=== PATIENT | female | born 1950 | race Caucasian/White ===

== ENCOUNTER 2016-12-31 07:01 | Day surgery (SDC) | payer MEDICARE, OTHER ==
[2016-12-31] VITALS (9 sets, daily range): BP systolic 120–154; BP diastolic 65–82; PULSE 58–79; RESP 11–18; O2SAT 95–99
[~2016-12-31] VITALS: Ht 161.3 cm; Wt 84.0 kg
[~2016-12-31 07:01] MED LIST: IBUP200C PO; LAMO150T2 PO; LIP40 PO; Lactated Ringer's 1,000 ML IV SCH; OMEP20CA11 PO
[2016-12-31] MEDS ORDERED: Lidocaine PF 1% 30 mL Inj ONE (07:02)
[2016-12-31] MEDS ORDERED: Propofol 10,000 mCg/mL 20 mL Inj ONE (07:02)
[2016-12-31] MEDS ORDERED: fentaNYL-PF 50 mCg/mL 2 mL Inj ONE (07:02)
[2016-12-31] MEDS ORDERED: Dexamethasone 4 mg/mL Inj ONE (07:02)
[2016-12-31] MEDS ORDERED: Ondansetron 2 mg/mL 2 mL Inj ONE (07:02)
[2016-12-31] MEDS ORDERED: CeFAZolin Inj 2 GM in IV Premix 1 EACH IV ONE (08:00)
[2016-12-31] MEDS ORDERED: Lactated Ringer's 1,000 ML IV SCH ×2 (08:00→09:55)
[2016-12-31] MEDS ORDERED: Lactated Ringer's 1,000 ML IV ONE (08:19)
[2016-12-31] MEDS ORDERED: EPHEDrine Sulfate 50 mg/mL Inj IVPUSH PRN (09:55)
[2016-12-31] MEDS ORDERED: HYDROmorphone 1 mg/mL Inj IVPUSH PRN (09:55)
[2016-12-31] MEDS ORDERED: fentaNYL-PF 50 mCg/mL 2 mL Inj IVPUSH PRN (09:55)
[2016-12-31] MEDS ORDERED: Phenylephrine 10,000 mCg/mL Inj IVPUSH PRN (09:55)
[2016-12-31] MEDS ORDERED: Lactated Ringer's 500 ML IV PRN (09:55)
[2016-12-31] MEDS ORDERED: Dexamethasone 4 mg/mL Inj IVPUSH PRN (09:55)
[2016-12-31] MEDS ORDERED: Ondansetron 2 mg/mL 2 mL Inj IVPUSH PRN (09:55)
[2016-12-31] MEDS ORDERED: MetoCLOpramide 5 mg/mL 2 mL Inj IVPUSH PRN (09:55)
[2016-12-31] MEDS ORDERED: Albuterol-Ipratropium 3 mL Inhalation Solution NEB PRN (09:55)
--- NOTE | 2016-12-31 09:55 | PCM.HPANE ---
Patient Data Date of Service: Dec 31, 2016 (0954) Surgeon Admitting Provider: Attending Provider:Jeffrey Han MD Primary Care Physician:Nolan Horton MD Other Provider:Marek Francis Anesthesia Reason for Visit Left Knee Meniscal Tear Ht/WT & BMI Height (Feet): 5 Height (Inches): 3.50 Weight (Kilograms): 84.000 Body Mass Index 32.00 Allergies Coded Allergies: No Known Allergies (Unverified , 12/26/16) Past Anesthesia History Anesthesia History: Positive for:: Anesthesia Reactions (PONV), Denies:: Malignant Hyperthermia Diabetes History Hx Diabetes?: No MRSA MRSA: No Medications Home Meds Incl Beta Blanca: No Reported Medications Omeprazole 20 Mg Capsule.dr20 Mg PO DAILY Ref 0 12/26/16 Atorvastatin (Lipitor)40 Mg [id number] Mg PO DAILY Ref 0 12/26/16 Lamotrigine 150 Mg Jpiygh360 Mg PO DAILY Ref 0 12/26/16 Ibuprofen 200 Mg [id number] Mg PO QID PRN For Pain Ref 0 12/26/16 History History of ENT Problems?: No HEENT History: Denies:: Abnormal Airway Denture Type: None Teeth Condition: Within Normal Limits Hx of Heart Problems?: Yes Cardiovascular History: Denies:: Heart Murmur Hypertension (hyperlipidemia) Hx of Respiratory Problem?: No Respiratory History: Denies:: Use of C-PAP Machine Hx Neurologic Problems?: Yes Neurological History: Positive for:: Headaches Hx of GI Problems?: Yes Hx of Problems?: Yes Genitourinary History: Positive for:: Kidney Stones (HX OF) Female Hx: Denies:: Currently Skin History: Denies:: History Skin Disorders? Pressure Ulcers Hx Musculoskeletal Problems?: Yes Musculoskeletal History: Positive for:: Musculoskeletal Trauma (LT KNEE MENISCAL TEAR=CURRENT PROBLEM HX CL FX LT ANKLE) Osteoarthritis Hx of Psycho/Social Problems?: No Hx Surgeries?: Yes (RT CTR,EXC PILONIDAL CYST,QUINCY) Hx Any Other Health Problems?: Yes Other History: Denies:: Cancer Endocrine Disease Hospitalization Thyroid Disease Hx Diabetes: No Hx Alcohol Use: YesAlcoholic Drinks Per Day: 3-5/WEEKHx Substance Use: No Have You Smoked inLast 12 mo: No Stop/Bang S-Snoring: Do You Snore Loudly: No T-Tired: feel tired, fatigued: No O-Obsered: Observed not breath: No P-Blood Pressure: treated: No B- Body Mass Index > 35 kg/m2: No A- Age over 50: Yes N- Neck Large Circumference: No G- Gender Male: No MATTHEW Total Score: 1 MATTHEW Risk Assessment: Low Risk, <3 Yes Risk Assessment Category Category 1A: Patient has history of documented sleep apnea, and HAS NOT received any narcotic, sedative or anesthesia administration during this stay. Category 1B: Patient has history of documented sleep apnea, and HAS received any narcotic , sedative or anesthesia administration during this stay Category 2: Patient has SUSPECTED Obstructive Sleep Apnea, and HAS received any narcotic , sedative or anesthesia administration during this stay. Category 3: Patient has SUSPECTED Obstructive Sleep Apnea and HAS NOT received narcotic, sedative or anesthesia administration during this stay. Category 4: Outpatient in Procedural Areas with known sleep apnea or who screen positive for High Risk via the STOP/BANG questionnaire. Exam Exam Vital Signs Vital Signs Date Time Temp Pulse Resp B/P Pulse Ox O2 Delivery O2 Flow Rate FiO2 12/31/16 07:49 36.1 79 17 154/69 98 Room Air General Appearance: Alert, Oriented X3 HEENT/AIRWAY: MP 1 Lungs: Clear to Auscultation Heart: Exam Unremarkable Meds/Labs/Diagnostics Admission Meds Current Medications Lactated Ringer's (Lr) 1,000 ml @ ud STK-MED ONCE IV Last administered on 12/31t 08:19; Start 12/31/16 at 08:19; Stop 12/31/16 at 08:20; Status DC Plan Impression Patient chart reviewed, patient interviewed and anesthestic plan with risks, benefits, and alternatives discussed, and informed consent obtained. NPO per Anesth. Guidelines: Yes ASA Physical Status: ASA2 Mod Systemic Disease Anesthetic Plan: GA Bene/Risks/Altern/Consents: Yes HP Complete Prior to Induction: Yes Arley Johnson MD Dec 31, 2016 09:55
[2016-12-31] MEDS ORDERED: oxyCODONE-Acetamin 5-325 mg Tablet PO PRN (10:05)
[2016-12-31] MEDS ORDERED: Ketorolac 15 mg/mL Inj IVPUSH ONE (10:05)
--- NOTE | 2016-12-31 10:06 | PCM.ORTHOP ---
Orthopedic Operative Report Date of Service: Dec 31, 2016 (0954) Pre Operative Diagnosis Left knee medial meniscus tear, arthritis Post Operative Diagnosis Same Procedure Left knee arthroscopy, partial medial meniscectomy, partial lateral meniscectomy , chondroplasty, partial synovectomy Surgeon Surgeon: Jeffrey Han MD Assistants: Erika Figueroa Indication for Procedure Left knee meniscus tear Findings Per dictation Details of Procedure Evangelina Rodriguez is a 66-year-old female who has had a history of left knee pain. The patient has failed conservative management. X-rays show the tibiofemoral joints with moderate DJD. 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 The patient has had persistent symptoms and is now brought to the operating room for arthroscopy. The risks, benefits, and alternatives of surgery were discussed with the patient. The risks included but were not limited to infection, bleeding, damage to vessels and nerves, loss of motion, continued pain, re-tear of the meniscus, deep venous thrombosis, and complications due to anesthesia including nerve injury, myocardial infarction, stroke, , etc. The patient stated understanding of the nature of the surgical procedure and gave written and verbal consent to proceed. PROCEDURE: The patient was brought to the operating room and placed supine on the operating room table. After the administration of general anesthesia the patient was placed in the supine position. Examination of the knee revealed no evident instability with a trace effusion. All prominences were padded with appropriately and neurovascular structures protected. The left knee was confirmed to be the appropriate site following surgical time out. The left lower extremity was examined under anesthesia. Range of motion was 0-135 degrees. There was no varus or valgus or anterior or posterior instability. The left lower extremity was then prepped and draped in the usual fashion. Sterile prep and drape was then undertaken of the knee. The knee joint was injected with 20 ccs of 1% Lidocaine, along with 3 ccs of 1 % lidocaine in the medial and lateral portal sites respectively. A standard anterolateral parapatellar stab wound was created. The knee joint was entered with a blunt- tipped obturator, followed by the 30-degree video arthroscope. An anteromedial portal was established under arthroscopic control. A routine arthroscopic survey was performed. The patellofemoral joint showed grade 2/3 chondromalacia which was debrided down to stable tissue with a shaver. The medial joint space was then entered. The articular surfaces showed grade 3/ 4chondromalacia. A degenerative radial medial meniscal tear was noted with a small flap. The shaver and the cutting instruments were inserted, and a debridement of the meniscus back to healthy tissue was then undertaken. The ACL and PCL were noted to be intact. The lateral joint space was then entered. The articular surfaces were intact with grade 1/2 chondromalacia. There was a degenerative tear to the inner aspect of the lateral meniscus with a small flap. A combination of the shaver and cutting instruments were then inserted and a debridement of this tissue down to stable tissue was undertaken. Moderate synovitis was noted anteriorly in the medial and lateral compartment and debrided with a shaver. The knee was irrigated with an additional 2 liters of lactated Ringer's solution. Excess fluid was drained. The portals were closed with 3-0 nylon as well as xeroform. The knee was injected with 20 mL of 0.5% ropivacaine. A dry sterile dressing was applied, followed by an YAZAN hose, soft roll, and SAGRARIO bandage. The patient was awakened in the operating room and transported to the recovery room in satisfactory condition. The patient appeared to tolerate the procedure well. At the completion of surgery the patient had soft compartments , palpable pulses, and brisk capillary refill. There were no complications noted. Please keep dressing clean dry and intact. Do not remove dressing until follow- up in clinic. If the dressing become soaked, you may remove the outer gauze and placed Band-Aids on the wounds. You may weight-bear as tolerated and maintain motion of your knee by bending it daily. You will follow up in clinic in 10-14 days for suture removal, and placement of new Steri-Strips. You will follow-up with me in clinic, and we will start physical therapy if needed. You will follow-up with me at 6 weeks postop and 12 weeks postop and will be released after that if improved. Please keep the affected extremity elevated when possible. Please take aspirin as prescribed. You may use ice and/ or heat as needed for comfort. (preferably ice during the first 48-72 hours) Please feel free to call with any further questions, comments, and/or concerns. Grafts, Implants: None Complications There were no periprocedural complications identified. Condition Stable Anesthetic Administered: GA Catheters: None Output, Estimated Blood Loss: 5 Blood Admin during surgery: No Surgical Cast or Splint: Other Surgical Specimen Removed: No Specimen sent to Pathology: No copies to: Jeffrey Han MD, Christopher L MD Dec 31, 2016 10:05 Surgical Specimen Removed: No Specimen sent to Pathology: No copies to: Jeffrey Han MD, Christopher L MD Dec 31, 2016 10:05
[2016-12-31] MEDS ORDERED: Ropivacaine-PF 0.5% 30 mL Inj INFILTRATE ONE (10:26)
--- NOTE | 2016-12-31 10:48 | PCM.ANEP1 ---
Post Anesthesia PACU Phase 1 Assessment Vital Signs 36.1, 75, 14, 98%, 139/82 Vital Signs Date Time Temp Pulse Resp B/P Pulse Ox O2 Delivery O2 Flow Rate FiO2 12/31/16 07:49 36.1 79 17 154/69 98 Room Air Anesthetic Administered: GA Level of Alertness: Awake, talking PENNINGTON's with Equal Strength: Yes Pain: No Nausea or Vomiting: No CV Function & Hydration Stable: Yes Airway Device: NONE Oxygen Delivery: Simple Mask Lungs: Clear to Auscultation Dermatome Level: Full Sensation Summary UNEVENTFUL GA PACU Phase 2 Assessment Complications: No Follow up Care: No Patient Instructions Provided: N/A Arley Johnson MD Dec 31, 2016 10:48
== END 2016-12-31 23:59 | disposition home or self-care (01) ==
LOC: SAS 07:01
PROVIDERS: ATTEND Orthopaedic Surgery
DX: M23.332 Other meniscus derangements, other medial meniscus, left knee (principal); M23.362 Other meniscus derangements, other lateral meniscus, left knee; M22.42 Chondromalacia patellae, left knee; M65.862 Other synovitis and tenosynovitis, left lower leg; M25.562 Pain in left knee; M17.12 Unilateral primary osteoarthritis, left knee
CPT/HCPCS: 29880; J0690; J1100; J1885; J2250; J2405; J2795; J3010; J7120